=== PATIENT | female | born 1955 | race Caucasian/White ===

== ENCOUNTER 2019-02-20 11:53 | Emergency (ER) | payer MEDICARE, OTHER ==
[~2019-02-20] VITALS: Ht 165.1 cm; Wt 63.0 kg
[~2019-02-20 11:53] MED LIST: ALBU8.5H8 IH; AMLO-145 PO; AMOX1TAB67 PO; CLON-379 PO; DONE10TA4 PO; ERGO500013 PO; HYDR-1666 PO; IBUP-727 PO; OMEP40CA6 PO; QUET50TA5 PO; RSV10T PO; THEO400T2 PO; ZOLP5TAB7 PO
[2019-02-20 12:00] VITALS: Ht 165.1 cm; Wt 63.0 kg
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
[2019-02-20 12:49] VITALS: BP 182/103; PULSE 65; RESP 18
--- NOTE | 2019-02-20 16:00 | RADRPT ---
Vent Rate: 64 bpm RR Interval: 944 msec TX Interval: 155 msec QRS Duration: 69 msec QT Interval: 406 msec QTC Interval: 418 msec P-R-T [place]: 56 - 61 - 63 degrees Sinus rhythm...normal P axis, V-rate 50- 99 Electronically Signed By: Lobito Carbajal
== END 2019-02-20 13:46 | disposition home or self-care (01) ==
LOC: E/R 11:53
DX: I16.0 Hypertensive urgency (principal); R40.2142 Coma scale, eyes open, spontaneous, at arrival to emergency department; R40.2252 Coma scale, best verbal response, oriented, at arrival to emergency department; R40.2362 Coma scale, best motor response, obeys commands, at arrival to emergency department; I10 Essential (primary) hypertension; J44.9 Chronic obstructive pulmonary disease, unspecified; F17.210 Nicotine dependence, cigarettes, uncomplicated
CPT/HCPCS: 80053; 80307; 82140; 84484; 85025; 85610; 85730; 93005